=== PATIENT | male | born 1995 | race Caucasian/White ===

== ENCOUNTER 2017-02-18 12:22 | Emergency (ER) | payer OTHER ==
[~2017-02-18] VITALS: Ht 185.4 cm; Wt 74.0 kg
[2017-02-18 12:31] VITALS: TEMP 37.3; Ht 185.4 cm; Wt 74.0 kg
[2017-02-18] MEDS ORDERED: XYLOCAINE 1%/SOD BICARB 20 ML VIAL INFIL ONE (12:45)
--- NOTE | 2017-02-18 13:04 | DIAGNOSTIC IMAGING REPORT ---
NASAL BONES MIN 3 VIEWS CLINICAL HISTORY: Pain status post trauma COMPARISON STUDY: No previous studies for comparison. FINDINGS: There is no orbital emphysema. There is acute nasal bone fracture. No air-fluid levels are visualized within the maxillary sinuses. IMPRESSION: Acute nasal bone fracture. Electronically signed by: Pedro Solis M.D. 02/18/2017 1:03 PM Dictated Date/Time: 02/18/2017 1:02 PM
--- NOTE | 2017-02-18 13:06 | DIAGNOSTIC IMAGING REPORT ---
LEFT HAND MIN 3 VIEWS ROUTINE CLINICAL HISTORY: Left hand pain status post trauma COMPARISON: None. DISCUSSION: There is a small chip fracture arising from the volar base of the middle phalanx the fourth digit. This is likely old. Please correlate with the patient's site of pain, as well as with any history of remote trauma. No additional fractures or dislocations are visualized. IMPRESSION: Small chip/avulsion fracture arising from the volar base of the middle phalanx of the fourth digit. This may be old. Clinical correlation is advocated Electronically signed by: Pedro Solis M.D. 02/18/2017 1:05 PM Dictated Date/Time: 02/18/2017 1:03 PM
[2017-02-18] MEDS ORDERED: HYDROCODONE/ACETAMOPHEN 5/325MG TAB PO STA (13:25)
[2017-02-18] MEDS ORDERED: HYDR-5688 PO (13:29)
--- NOTE | 2017-02-18 13:30 | EMERGENCY ROOM VISIT NOTE ---
History First contact with patient: 12:38 Chief Complaint: LACERATION/CUT (SUT/DERMABOND) Stated Complaint: LAC ON NOSE Nursing Triage Summary: patient was drinking and got up to go to the bathroom and fell into the door jam. laceration to the bridge of the nose. continues to be intoxicated at this time History of Present Illness The patient is a 22 year old male who presents to the Emergency Room with complaints of laceration to his nose and left hand pain. The patient states that he was drinking alcohol last night and woke up this morning at approximately 7:30 and was still feeling intoxicated and went into the bathroom. The patient states when he was leaving the bathroom he tripped and fell forward striking his nose and injuring his left hand. The patient is right -hand dominant. The patient denies any dizziness or visual changes. The patient denies any headache. The patient states that he was bleeding out of his left nostril that has stopped. The patient's tetanus is up-to-date. Review of Systems 10 system review was performed and was negative unless stated otherwise history of present illness. Past Medical/Surgical History Pneumothorax Social History Smoking Status: Current Some Day Smoker Alcohol Use: occasionally Marital Status: single Housing Status: lives with roommate Occupation Status: [employer] student Current/Historical Medications No Active Prescriptions or Reported Meds Physical Exam Vital Signs Date Time Temp Pulse Resp B/P (MAP) Pulse Ox O2 Delivery O2 Flow Rate FiO2 02/18/17 12:31 37.3 89 20 132/80 98 Room Air Physical Exam GENERAL: 22-year-old male appears in no acute distress. MENTAL Status: Alert and oriented 3. SCALP: Atraumatic, nontender to palpation. EYES: PERRLA. EOMs intact. Funduscopic exam unremarkable. EARS: Canals clear. TMs without hemotympanum FACE: There is a 1 cm laceration on the bridge of the nose without any active bleeding. The wound looks clean. Left nasal passage was dried blood noted. Right nasal passages clear. NEURO:Cranial nerves two through 12 intact. Cerebellar function intact with [id number]. Fine motor intact with alternating finger motions. LEFT HAND: No gross bony deformity noted. The patient has tenderness palpation over the first and second MCP joints. He has full range of motion of the fingers but he states it is painful. Medical Decision & Procedures ER Provider Diagnostic Interpretation: LEFT HAND MIN 3 VIEWS ROUTINE CLINICAL HISTORY: Left hand pain status post trauma COMPARISON: None. DISCUSSION: There is a small chip fracture arising from the volar base of the middle phalanx the fourth digit. This is likely old. Please correlate with the patient's site of pain, as well as with any history of remote trauma. No additional fractures or dislocations are visualized. IMPRESSION: Small chip/avulsion fracture arising from the volar base of the middle phalanx of the fourth digit. This may be old. Clinical correlation is advocated Electronically signed by: Pedro Solis M.D. 02/18/2017 1:05 PM Dictated Date/Time: 02/18/2017 1:03 PM NASAL BONES MIN 3 VIEWS CLINICAL HISTORY: Pain status post trauma COMPARISON STUDY: No previous studies for comparison. FINDINGS: There is no orbital emphysema. There is acute nasal bone fracture. No air-fluid levels are visualized within the maxillary sinuses. IMPRESSION: Acute nasal bone fracture. Electronically signed by: Pedro Solis M.D. 02/18/2017 1:03 PM Procedure Wound Repair: Complexity: Basic. Verbal consent was obtained after the risks and benefits were explained, including but not limited to bleeding, scarring, infection, pain, and bone/joint /nerve damage. The skin was prepped with betadine and a sterile field set. The wound was anesthetized with 1.0 ml of 1% buffered lidocaine. With direct pressure the bleeding subsided. Copious irrigation was performed using sterile saline. The wound was explored for foreign bodies and none found. Debridement was not performed. The wound edges were approximated using 6-0 Ethilon with 4 simple interrupted sutures. Hemostasis and excellent approximation was achieved. Antibacterial ointment and a sterile dressing applied. Detailed wound care instructions and signs and symptoms of infection reviewed with the patient. No complications and the patient tolerated the procedure well. ED Course The patient was evaluated. X-rays of the nasal bones and left hand were ordered and interpreted by the radiologist and myself as above with findings of an acute nasal bone fracture but no acute hand fractures.. Wound repair as above. Please see procedure note. The patient was given [place] 5/325 mg one tablet by mouth for pain. The patient was discharged home in stable condition with a friend driving. Medical Decision Differential diagnosis include nasal fracture versus nasal contusion. Hand contusion versus hand fracture. Blood Pressure Screening Patient's blood pressure: Normal blood pressure Impression Primary Impression: Facial laceration Additional Impressions: Nasal bones, closed fracture Contusion of hand, left Departure Information Dispostion Home / Self-Care Condition GOOD Prescriptions Hydrocodone/Acetaminophen 5MG/325MG ([place] 5MG/325MG) Tab 1-2 TABLET PO Q6 Y for Pain, #10 TAB For Initial Treatment Prov: Altagracia Fleming PA-C 02/18/17 Referrals [facility] (PCP) Forms HOME CARE DOCUMENTATION FORM, IMPORTANT VISIT INFORMATION Patient Instructions Contusion Bone Tx, My [facility] Additional Instructions Ice to affected areas intermittently over the next 24 hours. Ibuprofen 600 mg every 6 hours with food for pain. Take [place] as needed for more severe pain. Do not drive or drink alcohol while taking the [place]. After the swelling resolves on your nose if there is any deformity recommend follow-up with plastic surgery. Keep wound clean and dry. No water on the area for 12-24 hrs then no soaking until sutures removed. Do not allow any crusting or dried blood to accumulate on sutures. If this occurs, use a 1:1 solution of hydrogen peroxide/water on a Q-tip to clean the wound. Use an antibiotic ointment for 3-4 days, then let wound dry. Suture removal in 6 days. Follow up sooner for any signs of infection (increasing redness, swelling, drainage). Ice and elevate for swelling and pain. Tylenol 650 mg every 6 hrs for pain. Keep covered when in sun until sutures removed then SPF 50 or higher for one year. Vitamin E oil if desired two weeks after suture removal for reduction of scar. Problem Qualifiers Primary Impression: Facial laceration Encounter type: initial encounter Qualified Codes: S01.81XA - Laceration without foreign body of other part of head, initial encounter Additional Impressions: Nasal bones, closed fracture Encounter type: initial encounter Qualified Codes: S02.2XXA - Fracture of nasal bones, initial encounter for closed fracture Contusion of hand, left Encounter type: initial encounter Qualified Codes: S60.222A - Contusion of left hand, initial encounter
[2017-02-18 13:48] VITALS: BP 124/68; PULSE 83; O2SAT 99
== END 2017-02-18 13:50 | disposition home or self-care (01) ==
LOC: C.EDB 12:23 → C.EDD 13:50
DX: S01.21XA Laceration without foreign body of nose, initial encounter (principal); S02.2XXA Fracture of nasal bones, initial encounter for closed fracture; S60.222A Contusion of left hand, initial encounter; W01.0XXA Fall on same level from slipping, tripping and stumbling without subsequent striking against object, initial encounter; Y92.002 Bathroom of unspecified non-institutional (private) residence as the place of occurrence of the external cause; F17.210 Nicotine dependence, cigarettes, uncomplicated

== ENCOUNTER 2017-02-25 16:51 | Emergency (ER) | payer OTHER ==
[~2017-02-25] VITALS: Ht 185.4 cm; Wt 75.1 kg
[~2017-02-25 16:51] MED LIST: HYDR-5688 PO
[2017-02-25 16:54] VITALS: TEMP 36.8; Ht 185.4 cm; Wt 75.1 kg
--- NOTE | 2017-02-25 17:11 | EMERGENCY ROOM VISIT NOTE ---
ED Visit Note First contact with patient: 17:00 CHIEF COMPLAINT: Suture removal This patient returns to the ED today for removal of sutures that were placed 8 days ago. There has been no swelling, redness, or drainage from the wound. The patient feels like the laceration is healing well. REVIEW OF SYSTEMS: Head: No headache, injury or neck pain. Skin: No rash, new lesions, or masses. General: No fever or chills, fatigue, loss of appetite , or significant recent weight gain or loss. PMH: The patient is healthy; there is no significant medical or surgical history. SOCIAL HISTORY: Patient lives at home. PHYSICAL EXAM: Vital Signs: Reviewed Nurse's notes. There is a sutured wound on the bridge of the nose with no signs of infection. There is mild erythema and slight swelling noted to the entire bridge of the nose. EMERGENCY DEPARTMENT COURSE: The sutures were removed without any difficulty and there was no separation of the wound edges. DIAGNOSIS: Healing laceration and suture removal DISCHARGE INSTRUCTIONS AND TREATMENT: Wash any remaining crusts off of the wound today For the nasal bone fracture, please take ibuprofen 600 mg every 6 hours as needed for pain. If the nose is still painful over the next 3-5 days, please follow up with an ear nose and throat doctor for further evaluation. A number has been provided.
[2017-02-25 17:18] VITALS: BP 120/80; PULSE 90; O2SAT 99
== END 2017-02-25 17:19 | disposition home or self-care (01) ==
LOC: C.EDB 16:52 → C.EDD 17:19
DX: Z48.02 Encounter for removal of sutures (principal)